=== PATIENT | female | born 1990 | race Caucasian/White ===

== ENCOUNTER 2020-08-29 05:42 | Inpatient (IN) | payer OTHER ==
[~2020-08-29] VITALS: Ht 152.4 cm; Wt 76.2 kg
[~2020-08-29 05:42] MED LIST: COLACE 100MG C100 MG PO; FEOSOL325 MG PO; IBUPROFEN600 MG PO; NORCO 5-325 TA1 EACH PO; PROVENTIL HFA 61 INH INH; ZANTAC150 MG PO
[2020-08-29] MEDS ORDERED: VITAFOL-OB+DHA1 EACH PO (07:27)
[2020-08-29] MEDS ORDERED: ZOFRAN4 MG PO (07:27)
[2020-08-30 05:51] LABS: HEMOGLOBIN 9.4 gm/dl (12.3-15.3)
[2020-08-30] MEDS ORDERED: HYDROCODON-ACE1 EAC4 PO (08:47)
[2020-08-30] MEDS ORDERED: IBUPROFEN600 MG PO (08:47)
[2020-08-30] MEDS ORDERED: DOCUSATE SODIU250 MG PO (08:47)
== END 2020-08-30 16:05 | disposition home or self-care (01) | DRG 788 ==
LOC: OB 05:42
PROVIDERS: ADMIT Obstetrics & Gynecology
PROC: 4A1HX4Z Monitoring of Products of Conception, Cardiac Electrical Activity, External Approach (ICD-10-PCS; 2020-08-29)
PROC: 10D00Z1 Extraction of Products of Conception, Low, Open Approach (ICD-10-PCS; principal; 2020-08-29 07:37)
DX: O34.211 Maternal care for low transverse scar from previous cesarean delivery (principal); N85.8 Other specified noninflammatory disorders of uterus; F41.9 Anxiety disorder, unspecified; Z3A.39 39 weeks gestation of pregnancy; Z37.0 Single live birth; Z90.49 Acquired absence of other specified parts of digestive tract; Z80.41 Family history of malignant neoplasm of ovary; Z83.3 Family history of diabetes mellitus
CPT/HCPCS: 36415; 81001; 82800; 85014; 85018; 85025; 90715; 94761; C9113; J0690; J1170; J1885; J2274; J2300; J2405; J2550; J2590; J3010; J7120

== ENCOUNTER → 2021-07-27 | Day surgery (SDC) | payer OTHER ==
[~2021-07-27] MED LIST changes: +DOCUSATE SODIU250 MG PO; +HYDROCODON-ACE1 EAC4 PO; +VITAFOL-OB+DHA1 EACH PO; +ZOFRAN4 MG PO
[2021-07-27 06:30] LABS: HEMOGLOBIN 13.1 gm/dl (12.3-15.3); RED BLOOD COUNT 4.62 M/UL (4.00-5.10); WHITE BLOOD COUNT 4.2 K/UL (4.5-11.0)
== END | disposition home or self-care (01) ==
LOC: OR 05:26
PROVIDERS: Obstetrics & Gynecology
DX: O02.1 Missed abortion (principal); Z20.822 Contact with and (suspected) exposure to COVID-19; Z90.49 Acquired absence of other specified parts of digestive tract
CPT/HCPCS: 36415; 76817; 81001; 85025; J1100; J1885; J2001; J2250; J2405; J2704; J2795; J7120

== ENCOUNTER 2021-10-30 21:44 | Emergency (ER) | payer OTHER ==
[2021-10-30 23:02] LABS: HEMOGLOBIN 13.3 gm/dl (12.3-15.3); RED BLOOD COUNT 4.74 M/UL (4.00-5.10); WHITE BLOOD COUNT 6.2 K/UL (4.5-11.0)
[2021-10-30 23:25] LABS: BUN/CREATININE RATIO 19 (0-10)
== END 2021-10-31 02:09 | disposition home or self-care (01) ==
LOC: ER1 21:44
PROVIDERS: Physician Assistant
DX: O20.9 Hemorrhage in early pregnancy, unspecified (principal); Z3A.01 Less than 8 weeks gestation of pregnancy
CPT/HCPCS: 80053; 81001; 84702; 85025; 86900; 86901; 87086; 99283

== ENCOUNTER 2022-02-20 14:44 | Outpatient (CLI) | payer OTHER | END 2022-02-20 16:36 | disposition home or self-care (01) | LOC: GENOP 14:44 | DX: O99.891 Other specified diseases and conditions complicating pregnancy (principal); M54.50 Low back pain, unspecified; Z3A.21 21 weeks gestation of pregnancy | CPT/HCPCS: 81001; G0463 ==